=== PATIENT | female | born 1950 | race Caucasian/White ===

== ENCOUNTER → 2016-04-14 | Outpatient (CLI) | payer OTHER ==
[~2016-04-14] MED LIST: ASPI81TA21 PO; GLIM2TAB2 PO; GLUCTAB PO; LISI2.5T5 PO; LORA0.5T12 PO; METF1000 PO; NAPR1TAB9 PO; PIRO-104 PO; PRED10TA PO; SERT1TAB88 PO; SIMV-151 PO
--- NOTE | 2016-04-14 10:53 | DIAGNOSTIC IMAGING REPORT ---
LEFT RIBS INCLUDING PA ERECT CHEST CLINICAL HISTORY: Left rib pain COMPARISON STUDY: 08/28/2015 FINDINGS: The erect chest reveals a stable area of atelectasis/scarring at the left lung base. There is no focal pulmonary consolidation. There is no pneumothorax. No left-sided rib fractures are visualized. No destructive lesions are visualized on conventional radiographic imaging IMPRESSION: No evidence of pneumothorax. No left-sided rib lesions or fractures are visualized. Electronically signed by: Issa Waddell M.D. 04/14/2016 10:51 AM Dictated Date/Time: 04/14/2016 10:49 AM
--- NOTE | 2016-04-14 10:53 | DIAGNOSTIC IMAGING REPORT ---
THORACOLUMBAR SPINE 2 VIEWS CLINICAL HISTORY: Back pain COMPARISON STUDY: No previous studies for comparison. FINDINGS: There are surgical clips within the right upper quadrant. There are mild multilevel degenerative changes present. No fractures, subluxations, or destructive lesions are visualized. The paraspinal line is not significantly displaced. IMPRESSION: No fractures, subluxations, or destructive lesions are visualized. Mild multilevel degenerative change. Electronically signed by: Issa Waddell M.D. 04/14/2016 10:52 AM Dictated Date/Time: 04/14/2016 10:51 AM
== END | disposition home or self-care (01) ==
LOC: C.RAD1850 10:25
PROVIDERS: ATTEND Nurse Practitioner Family
DX: M54.6 Pain in thoracic spine (principal)

== ENCOUNTER → 2016-06-22 | Outpatient (CLI) | payer OTHER ==
--- NOTE | 2016-06-22 12:11 | DIAGNOSTIC IMAGING REPORT ---
LEFT THIRD FINGER RADIOGRAPHS CLINICAL HISTORY: Follow-up fracture. COMPARISON: None FINDINGS: There is a comminuted, mildly displaced fracture of the distal tuft of the distal phalanx of the left third finger. No additional fractures of the left third finger are identified. IMPRESSION: Comminuted, mildly displaced fracture of the distal tuft of the distal phalanx of the left third finger which is likely subacute. Electronically signed by: Ronny Lovett M.D. 06/22/2016 12:10 PM Dictated Date/Time: 06/22/2016 12:09 PM
== END | disposition home or self-care (01) ==
LOC: C.RAD1850 11:43
PROVIDERS: ATTEND Family Medicine
DX: S62.633A Displaced fracture of distal phalanx of left middle finger, initial encounter for closed fracture (principal); X58.XXXA Exposure to other specified factors, initial encounter

== ENCOUNTER → 2016-07-27 | Outpatient (CLI) | payer OTHER ==
--- NOTE | 2016-07-27 12:49 | MAMMOGRAPHY REPORT ---
BILATERAL DIGITAL SCREENING MAMMOGRAM WITH CAD: 07/27/2016 CLINICAL HISTORY: Routine screening. Patient has no complaints. TECHNIQUE: Bilateral CC and MLO views were obtained. Current study was also evaluated with a Comput er Aided Detection (CAD) system. COMPARISON: Comparison is made to exams dated: 07/28/2015 mammogram, 07/18/2014 mammogram, 05/11/2013 m ammogram, 03/30/2012 mammogram, 03/05/2010 mammogram - [facility], and 02/02/2008. BREAST COMPOSITION: There are scattered areas of fibroglandular density in both breasts. FINDINGS: There are scattered bilateral benign-appearing calcifications in the breasts. No new susp icious mass, architectural distortion or cluster of microcalcifications is seen. IMPRESSION: ACR BI-RADS CATEGORY 1: NEGATIVE There is no mammographic evidence of malignancy. A 1 year screening mammogram is recommended. The p atient will receive written notification of the results. Approximately 10% of breast cancers are not detected with mammography. A negative mammographic repor t should not delay biopsy if a clinically suggestive mass is present. Sara Jeronimo M.D. ay/:07/27/2016 12:22:17 Used Car Manager: Mer HOLLOWAY(Chanel)(M), [facility] letter sent: Normal 1/2 BI-RADS Code: ACR BI-RADS Category 1: Negative
== END | disposition home or self-care (01) ==
LOC: C.MAMM 10:59
PROVIDERS: ATTEND Family Medicine
DX: Z12.31 Encounter for screening mammogram for malignant neoplasm of breast (principal)

== ENCOUNTER → 2016-09-06 | Outpatient (CLI) | payer OTHER ==
--- NOTE | 2016-09-06 15:05 | DIAGNOSTIC IMAGING REPORT ---
LEFT ELBOW 3 VIEWS CLINICAL HISTORY: Fall with left elbow injury. FINDINGS: 3 views of the left elbow are obtained. No prior studies are available for comparison at the time of dictation. The skeletal structures are osteopenic. There is no radiographic evidence of fracture. The joint spaces appear maintained. No joint effusion is identified. A tiny enthesophyte is seen at the triceps insertion. An enthesophyte is also seen along the lateral humeral epicondyle. The overlying soft tissues are within normal limits. IMPRESSION: There is no radiographic evidence of left elbow fracture. Electronically signed by: Abhishek Agustin M.D. 09/06/2016 3:04 PM Dictated Date/Time: 09/06/2016 3:03 PM
--- NOTE | 2016-09-06 15:07 | DIAGNOSTIC IMAGING REPORT ---
LEFT SCAPULA 2 VIEWS CLINICAL HISTORY: Fall with left shoulder pain. FINDINGS: 2 views of the left scapula are obtained. No prior studies are available for comparison at the time of dictation. The skeletal structures are osteopenic. There is no radiographic evidence of left scapular fracture. The shoulder joint is intact as visualized. The overlying soft tissues are normal as imaged. The visualized left upper lobe lung parenchyma appears clear. IMPRESSION: There is no radiographic evidence of left scapular fracture. Electronically signed by: Abhishek Agustin M.D. 09/06/2016 3:05 PM Dictated Date/Time: 09/06/2016 3:04 PM
== END | disposition home or self-care (01) ==
LOC: C.RAD1850 14:41
PROVIDERS: ATTEND Physician Assistant
DX: M89.8X1 Other specified disorders of bone, shoulder (principal); M25.522 Pain in left elbow; R20.0 Anesthesia of skin; W11.XXXA Fall on and from ladder, initial encounter

== ENCOUNTER → 2017-07-28 | Outpatient (CLI) | payer OTHER ==
[~2017-07-28] MED LIST changes: +ASPI-319 PO; -ASPI81TA21 PO; +LISI-1116 PO; -LISI2.5T5 PO
--- NOTE | 2017-07-29 07:49 | MAMMOGRAPHY REPORT ---
BILATERAL DIGITAL SCREENING MAMMOGRAM TOMOSYNTHESIS WITH CAD: 07/28/2017 CLINICAL HISTORY: Routine screening. Patient has no complaints. TECHNIQUE: Breast tomosynthesis in addition to standard 2D mammography was performed. Current study was also evaluated with a Computer Aided Detection (CAD) system. COMPARISON: Comparison is made to exams dated: 07/27/2016 mammogram, 07/28/2015 mammogram, 07/18/2014 jenise mogram, 05/11/2013 mammogram, 03/30/2012 mammogram, and 03/09/2011 mammogram - [facility]ter. BREAST COMPOSITION: There are scattered areas of fibroglandular density in both breasts. FINDINGS: No suspicious masses, calcifications, or areas of architectural distortion are noted in ei ther breast. There has been no significant interval change compared to prior exams. Scattered bilate ral benign-appearing calcifications are again noted. IMPRESSION: ACR BI-RADS CATEGORY 2: BENIGN There is no mammographic evidence of malignancy. A 1 year screening mammogram is recommended. The pa tient will receive written notification of the results. Approximately 10% of breast cancers are not detected with mammography. A negative mammographic report should not delay biopsy if a clinically suggestive mass is present. Zeinab Cervantes M.D. ah/:07/28/2017 12:54:14 Locomotive Supervisor: Jihan ALEGRIA)(Rehana)(BD), [facility] letter sent: Normal 1/2 BI-RADS Code: ACR BI-RADS Category 2: Benign
== END | disposition home or self-care (01) ==
LOC: C.MAMM 10:50
PROVIDERS: ATTEND Family Medicine
DX: Z12.31 Encounter for screening mammogram for malignant neoplasm of breast (principal); M85.89 Other specified disorders of bone density and structure, multiple sites

== ENCOUNTER 2017-11-05 19:18 | Observation (INO) | payer OTHER ==
[~2017-11-05] VITALS: Ht 160 cm; Wt 90.7 kg
[2017-11-05] MEDS ORDERED: ASPIRIN 81 MG CHEW PO STA (19:35)
[2017-11-05] MEDS ORDERED: SODIUM CHLORIDE 0.9% 1000ML 1,000 ML IV STA (19:35)
[2017-11-05] MEDS ORDERED: EMPA1TAB PO (19:45)
[2017-11-05] MEDS ORDERED: SITA1TAB27 PO (19:45)
[2017-11-05] MEDS ORDERED: INSDGIPEN SQ (19:45)
[2017-11-05] MEDS ORDERED: NITROGLYCERIN 0.4 MG SL PER TAB CHARGE SL PRN ×2 (19:45→22:15)
[2017-11-05] MEDS ORDERED: CYM30 PO (19:45)
--- NOTE | 2017-11-05 20:02 | DIAGNOSTIC IMAGING REPORT ---
CHEST ONE VIEW PORTABLE CLINICAL HISTORY: 67 years-old Female presenting with Chest Pain. TECHNIQUE: Portable upright AP view of the chest was obtained. COMPARISON: 09/11/2014. FINDINGS: Cardiomediastinal silhouette normal. Prominence of pulmonary vasculature. Lungs and pleural spaces clear. Osseous structures normal. Upper abdomen normal. IMPRESSION: 1. Findings suggest volume overload. No dottie pulmonary edema. Electronically signed by: Jay Smart M.D. 11/05/2017 8:01 PM Dictated Date/Time: 11/05/2017 7:59 PM
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
[2017-11-05 20:25] LABS: BASO % 1.7 %; EOS % 5.6 %; EOS ABS # 0.33 K/uL (0-0.5); HEMATOCRIT 41.5 % (37-47); HEMOGLOBIN 14.2 g/dL (12.0-16.0); IG# 0.02 K/uL (0.00-0.02); LYMPH % 33.1 %; LYMPH ABS # 1.95 K/uL (1.2-3.4); MEAN CELL VOLUME 87.2 fL (80-100); MEAN CORPUSCULAR HEMOGLOBIN 29.8 pg (25-34); MEAN CORPUSCULAR HGB CONC 34.2 g/dl (32-36); MEAN PLATELET VOLUME 9.9 fL (7.4-10.4); MONO % 5.6 %; MONO ABS # 0.33 K/uL (0.11-0.59); NEUT % 53.7 %; NEUT ABS # 3.17 K/uL (1.4-6.5); PLATELET COUNT 166 K/uL (130-400); RED CELL DISTRIBUTION WIDTH CV 13.3 % (11.5-14.5); RED CELL DISTRIBUTION WIDTH SD 42.4 fL (36.4-46.3)
[2017-11-05 20:46] LABS: BLOOD UREA NITROGEN 12 mg/dl (7-18); CARBON DIOXIDE 25 mmol/L (21-32); CKMB 1.8 ng/ml (0.5-3.6); CREATININE 1.17 mg/dl (0.60-1.20); GLUCOSE 339 mg/dl (70-99); POTASSIUM 3.5 mmol/L (3.5-5.1); SODIUM 138 mmol/L (136-145)
[2017-11-05] MEDS ORDERED: GLUCOSE 10 TABS/TUBE PO PRN (22:15)
[2017-11-05] MEDS ORDERED: ONDANSETRON INJ 2 MG/ML 2 ML VIAL IV PRN (22:15)
[2017-11-05] MEDS ORDERED: GLUCAGON FOR INJ 1 MG VIAL SQ PRN (22:15)
[2017-11-05] MEDS ORDERED: GLUCOSE 40% GEL 15 GM TUBE PO PRN (22:15)
[2017-11-05] MEDS ORDERED: CARBOHYDRATES FOR HYPOGLYCEMIA PO PRN (22:15)
[2017-11-05] MEDS ORDERED: LORAZEPAM 0.5 MG TAB PO PRN (22:15)
[2017-11-05] MEDS ORDERED: DC ALL PREVIOUSLY ORDERED DIABETES MEDS ONE (22:15)
[2017-11-05] MEDS ORDERED: MoRPHine SULFATE 2 MG/ML CARP IV PRN (22:15)
[2017-11-05] MEDS ORDERED: DEXTROSE 50% 50 ML SYR IV PRN (22:15)
[2017-11-05] MEDS ORDERED: ACETAMINOPHEN 325 MG TAB PO PRN (22:15)
--- NOTE | 2017-11-05 22:24 | History and Physical ---
History & Physical Date & Time of Service: Nov 05, 2017 at 22:21 Chief Complaint: Chest Pain Primary Care Physician: Srinivasa Ferraro M.D. History of Present Illness Source: patient Patient is a pleasant 67yo female with history of DM, HLP presenting with chest pain. Patient states that she went out to eat with her friend this evening. On her drive home she had acute onset of substernal chest pressure and heaviness. She rated the discomfort at 8/10, non-radiating, non-pleuritic. She had associated diaphoresis. No dizziness/nausea or lightheadedness. She drove herself to the ER. On arrival here she was found to be afebrile, hemodynamically stable. She was administered 0.4mg SL Nitro with improvement of the pain to 5/10. She is presently chest pain free. Past Medical/Surgical History Medical Problems: (1) Chest pain (2) Contusion of left foot (3) Diabetes (4) Flank pain (5) Flank pain (6) Hyperlipidemia (7) Negative history for kidney stones (8) Vertigo Surgical Problems: (1) History of hysterectomy (2) Hx of cholecystectomy (3) Hx of cholecystectomy Family History Cancer Heart disease Kidney disease Social History Smoking Status: Never Smoker Drug Use: none Marital Status: Housing status: lives alone Occupational Status: employed, retired Allergies Coded Allergies: Empagliflozin (Verified Adverse Reaction, Severe, UTI, DIZZY, 11/05/17) Metformin (Verified Adverse Reaction, Severe, INCREASED LACTIC ACID, ) Home Medications Scheduled Aspirin Enteric Coated (Ecotrin Or Generic), 81 MG PO DAILY Duloxetine HCl (Duloxetine HCl), 30 MG PO BID Glimepiride (Glimepiride), 2 MG PO DAILY Cbnqqbkxcgv-Cclsqljaqqn-Yrzgnm (Glucosamine Chondroitin D), 2 TABS PO DAILY Insulin Glargine (Lantus Solostar), 30 UNITS SQ HS Simvastatin (Simvastatin), 20 MG PO HS Sitagliptin (Januvia), 100 MG PO DAILY Scheduled PRN Lorazepam (Lorazepam), 0.5 MG PO DAILY PRN for Anxiety Naproxen (Aleve), 220 MG PO DAILY PRN for Headache Review of Systems Constitutional: No fever, No chills, No sweats Eyes: No worsening of vision ENT: No hearing loss, No sore throat, No trouble swallowing Respiratory: + cough, + sputum (reports occasional productive cough), No shortness of breath, No dyspnea on exertion Cardiovascular: + chest pain, No orthopnea, No edema, No palpitations Abdomen: No pain, No nausea, No vomiting, No diarrhea, No constipation Musculoskeletal: No joint pain Genitourinary - Female: No dysuria Neurologic: No weakness, No numbness/tingling Psychiatric: No depression symptoms Endocrine: No fatigue Hematologic / Lymphatic: No abnormal bleeding/bruising Integumentary: No rash Physical Exam Vital Signs Date Time Temp Pulse Resp B/P (MAP) Pulse Ox O2 Delivery O2 Flow Rate FiO2 11/05/17 22:01 79 20 124/69 97 Room Air 11/05/17 21:31 85 23 118/94 97 Room Air 11/05/17 21:01 83 18 123/65 96 Room Air 11/05/17 20:31 84 22 120/66 97 Room Air 11/05/17 20:01 87 18 124/73 96 Room Air 11/05/17 19:31 93 24 140/75 97 Room Air 11/05/17 19:30 Room Air 11/05/17 19:28 Room Air 11/05/17 19:22 36.9 86 18 134/76 96 Room Air General Appearance: WD/WN, no apparent distress Head: normocephalic, atraumatic Eyes: normal inspection, PERRL, EOMI, sclerae normal ENT: normal ENT inspection, pharynx normal Neck: supple, no adenopathy, thyroid normal, no JVD, trachea midline Respiratory/Chest: lungs clear, normal breath sounds, no respiratory distress, no accessory muscle use, + pertinent finding (mild tenderness with palpation of sternum and ribs) Cardiovascular: regular rate, rhythm, no edema, no gallop, no JVD, no murmur, normal peripheral pulses Abdomen/GI: normal bowel sounds, non tender, soft, no organomegaly Back: normal inspection, + pertinent finding (muscle spasm of left paraspinal musculature) Extremities/Musculoskelatal: normal inspection, no calf tenderness, normal capillary refill, no pedal edema, normal range of motion, non-tender Neurologic/Psych: no motor/sensory deficits, alert, oriented x 3 Skin: normal color, warm/dry, no rash Lymphatic: no adenopathy Diagnostics Laboratory Results Results Past 24 Hours Test 11/05/17 19:40 Range/Units White Blood Count 5.90 4.8-10.8 K/uL Red Blood Count 4.76 4.2-5.4 M/uL Hemoglobin 14.2 12.0-16.0 g/dL Hematocrit 41.5 37-47 % Mean Corpuscular Volume 87.2 80-100 fL Mean Corpuscular Hemoglobin 29.8 25-34 pg Mean Corpuscular Hemoglobin Concent 34.2 32-36 g/dl Platelet Count 166 130-400 K/uL Mean Platelet Volume 9.9 7.4-10.4 fL Neutrophils (%) (Auto) 53.7 % Lymphocytes (%) (Auto) 33.1 % Monocytes (%) (Auto) 5.6 % Eosinophils (%) (Auto) 5.6 % Basophils (%) (Auto) 1.7 % Neutrophils # (Auto) 3.17 1.4-6.5 K/uL Lymphocytes # (Auto) 1.95 1.2-3.4 K/uL Monocytes # (Auto) 0.33 0.11-0.59 K/uL Eosinophils # (Auto) 0.33 0-0.5 K/uL Basophils # (Auto) 0.10 0-0.2 K/uL RDW Standard Deviation 42.4 36.4-46.3 fL RDW Coefficient of Variation 13.3 11.5-14.5 % Immature Granulocyte % (Auto) 0.3 % Immature Granulocyte # (Auto) 0.02 0.00-0.02 K/uL Sodium Level 138 136-145 mmol/L Potassium Level 3.5 3.5-5.1 mmol/L Chloride Level 103 98-107 mmol/L Carbon Dioxide Level 25 21-32 mmol/L Anion Gap 10.0 3-11 mmol/L Blood Urea Nitrogen 12 7-18 mg/dl Creatinine 1.17 0.60-1.20 mg/dl Est Creatinine Clear Calc Drug Dose 53.6 ml/min Estimated GFR () 56.6 Estimated GFR (Non- 48.9 BUN/Creatinine Ratio 10.1 10-20 Random Glucose 339 70-99 mg/dl Calcium Level 9.0 8.5-10.1 mg/dl Total Creatine Kinase 155 26-192 U/L Creatine Kinase MB 1.8 0.5-3.6 ng/ml Creatine Kinase MB Ratio 1.2 0-3.0 Troponin I < 0.015 0-0.045 ng/ml Beta-Hydroxybutyric Acid 1.04 0.2-2.81 mg/dL Diagnostic Radiology CHEST ONE VIEW PORTABLE CLINICAL HISTORY: 67 years-old Female presenting with Chest Pain. TECHNIQUE: Portable upright AP view of the chest was obtained. COMPARISON: 09/11/2014. FINDINGS: Cardiomediastinal silhouette normal. Prominence of pulmonary vasculature. Lungs and pleural spaces clear. Osseous structures normal. Upper abdomen normal. IMPRESSION: 1. Findings suggest volume overload. No dottie pulmonary edema. Electronically signed by: Jay Smart M.D. 11/05/2017 8:01 PM Dictated Date/Time: 11/05/2017 7:59 PM EKG The study demonstrates NSR at 89bpm, left axis deviation, MV=345, QRS=88, QTc= 450, non-specific t-wave changes in V1, V5, V6 Impression Assessment and Plan Patient is a 67yo female with DM, HLP presenting with acute onset substernal CP 1. Chest pain - patient presently hemodynamically stable. EKG with nonspecific t-wave changes, troponin x 1 negative. Patient is presently CP free. Ddx to include ACS/UA given patient's history of intermittent exertional CP in the past, also consider GI, musculoskeletal pain. -Observation to telemetry -Trend cardiac enzymes x 3 sets -Check lipids and HgAIC -Continue ASA and Statin -Patient may benefit from additional stress testing 2. Diabetes - blood sugar presently elevated at 339. -Check A1C -Hold oral agents -Continue Lantus 30u qHS, Novolog sliding scale based on weight -Continue to monitor 3. Hyperlipidemia - chronic -check lipids -Continue Simvastatin 4. Depression - chronic -Continue Cymbalta 5. F/E/N - Heplock. Monitor electrolytes and replete as needed. AHA/DM diet as tolerated 6. Ppx - Lovenox for DVT prophylaxis 7. Code - Full per discussion with patient 8. Dispo - Observation to telemetry Resuscitation Status FULL VTE Prophylaxis Will order VTE Prophylaxis: Yes
[2017-11-05] MEDS ORDERED: IV FLUIDS COMPLETED PRN (22:30)
[2017-11-05 22:51] LABS: PTT PATIENT 25.6 SECONDS (21.0-31.0)
[2017-11-05 22:59] LABS: PHOSPHORUS 2.8 mg/dl (2.5-4.9)
[2017-11-05 23:00] VITALS: BP 136/80; PULSE 78; TEMP 36.7; O2SAT 95; Ht 160 cm; Wt 90.7 kg
[2017-11-05] MEDS ORDERED: INSULIN GLARGINE SOLOSTAR 100 UNITS/ML 3 ML PEN SQ SCH (23:30)
[2017-11-06] MEDS: INSULIN ASPART 100 UNITS/ML 3 ML PEN SC SCH ×3 (00:29→11:53)
[2017-11-06 03:41] VITALS: BP 117/57; PULSE 80; TEMP 37; O2SAT 97
[2017-11-06 04:02] LABS: BASO % 1.5 %; BASO ABS # 0.08 K/uL (0-0.2); EOS % 6.2 %; EOS ABS # 0.34 K/uL (0-0.5); HEMATOCRIT 39.7 % (37-47); HEMOGLOBIN 13.4 g/dL (12.0-16.0); IG# 0.02 K/uL (0.00-0.02); LYMPH ABS # 2.02 K/uL (1.2-3.4); MEAN CELL VOLUME 88.2 fL (80-100); MEAN CORPUSCULAR HEMOGLOBIN 29.8 pg (25-34); MEAN CORPUSCULAR HGB CONC 33.8 g/dl (32-36); MEAN PLATELET VOLUME 9.6 fL (7.4-10.4); MONO % 6.2 %; MONO ABS # 0.34 K/uL (0.11-0.59); NEUT % 48.7 %; NEUT ABS # 2.66 K/uL (1.4-6.5); PLATELET COUNT 155 K/uL (130-400); RED CELL DISTRIBUTION WIDTH CV 13.4 % (11.5-14.5); RED CELL DISTRIBUTION WIDTH SD 43.2 fL (36.4-46.3); WHITE BLOOD COUNT 5.46 K/uL (4.8-10.8)
[2017-11-06 04:24] LABS: BLOOD UREA NITROGEN 12 mg/dl (7-18); CALCIUM 8.6 mg/dl (8.5-10.1); CARBON DIOXIDE 27 mmol/L (21-32); CREATININE 0.82 mg/dl (0.60-1.20); GLUCOSE 108 mg/dl (70-99); SODIUM 143 mmol/L (136-145)
[2017-11-06 04:27] LABS: CHOLESTEROL 154 mg/dl (0-200); LDL CHOLESTEROL CALCULATED 63 mg/dl
[2017-11-06] MEDS ORDERED: ENOXAPARIN 40 MG/0.4 ML SYR SC SCH (06:00)
[2017-11-06 07:43] VITALS: BP 122/74; PULSE 71; TEMP 36.8; O2SAT 95
[2017-11-06 08:00] VITALS: O2SAT 95
[2017-11-06] MEDS ORDERED: ASPIRIN 81 MG ECTAB PO SCH (09:00)
[2017-11-06] MEDS ORDERED: DULOXETINE (CYMBALTA) 30 MG CAP PO SCH (09:00)
--- NOTE | 2017-11-06 10:32 | EXERCISE STRESS ECHO ---
*NOTICE TO RECEIVING CONSTITUTION PARTY AGENCY This information is strictly Confidential and protected under [place] law. [place] law prohibits you from making any further disclosure of this information unless further disclosure is expressly permitted by the written consent of the person to whom it pertains or is authorized by law. A general authorization for the release of medical or other information is not sufficient for this purpose. Hospital accepts no responsibility if the information is made available to any other person, INCLUDING THE PATIENT. Interpretation Summary * Name: SCOOBY LIMON Study Date: 11/06/2017 08:32 AM BP: 131/79 mmHg * Patient Location: C.2T\S\S241\S\1 HR: 80 * : 1950 (M/d/yyyy) Gender: Female Height: 63 in * Age: 67 yrs Ethnicity: CA Weight: 199 lb * Ordering Physician: Srinivasa Cm * Referring Physician: Self, Referred * Performed By: Chetna Serrano RDCS * * Reason For Study: Chest pain * BSA: 1.9 m2 * -- Conclusions -- * Stress Echo: * 1. Negative stress echo for ischemia at 89 % MPHR. * 2. Negative exercise ECG for ischemia at 89 % MPHR. * 3. Appropriate blood pressure response to exercise. * 4. No arrhythmia. * 5. Study terminated due to dyspnea and fatigue. No chest pain reported. * 6. Poor exercise tolerance. Procedure Details * ECHOEX, CPT #81059 Left Ventricle * The left ventricle is normal in size. * There is normal left ventricular wall thickness. * Left ventricular systolic function is normal. * Ejection Fraction = 60-65%. * Resting wall motion: Normal. Stress wall motion: Appropriate increase in Left ventricular systolic function and decrease in cavity size. No stress induced segmental wall motion abnormalities. * The left ventricular ejection fraction increases normally with stress. The left ventricular end-systolic cavity size reduces post-stress (normal response). The left ventricular wall motion with stress is normal. Stress Parameters * NSR at 75 bpm. * Stress ECG: No ST changes. No arrhythmias. * No arrhythmia were noted with stress. * The stress portion of this study was personally supervised by the undersigned interpreting physician. * Rest heart rate was '80' BPM. * Rest blood pressure was '131/79' * Maximum heart rate achieved was 139 bpm. * Maximum heart rate was 89 % of maximum age-predicted heart rate. * Maximum blood pressure was '161/71' * Total exercise time was '3:21' * Maximum exercise MET level achieved was '5.00' METS * Maximum treadmill speed was '2.50' miles per hour. * Maximum treadmill elevation was '12.00'% grade. * Exercise was terminated due to 'dyspnea and fatigue' MMode 2D Measurements and Calculations IVSd 0.93 cm LVIDd 4.3 cm LVIDs 2.9 cm LVPWd 0.93 cm IVS/LVPW 10 FS 32.2 % EDV(Teich) 84.5 ml ESV(Teich) 33.2 ml EF(Teich) 60.7 % EDV(cubed) 81.3 ml ESV(cubed) 25.3 ml EF(cubed) 68.9 % LV mass(C)d 130.3 grams LV mass(C)dI 67.5 grams/m\S\2 SV(Teich) 51.4 ml SI(Teich) 26.6 ml/m\S\2 SV(cubed) 56.0 ml SI(cubed) 29.0 ml/m\S\2 LVAd ap4 28.1 cm\S\2 LVLd ap4 7.8 cm EDV(MOD-sp4) 80.9 ml EDV(sp4-el) 85.8 ml LVAs ap4 14.8 cm\S\2 LVLs ap4 6.5 cm ESV(MOD-sp4) 28.6 ml ESV(sp4-el) 28.5 ml EF(MOD-sp4) 64.7 % EF(sp4-el) 66.8 % LVAd ap2 21.6 cm\S\2 LVLd ap2 7.1 cm EDV(MOD-sp2) 52.5 ml EDV(sp2-el) 55.5 ml LVAs ap2 11.2 cm\S\2 LVLs ap2 6.0 cm ESV(MOD-sp2) 18.6 ml ESV(sp2-el) 17.8 ml EF(MOD-sp2) 64.5 % EF(sp2-el) 68.0 % LVLd %diff -9.61 % EDV(MOD-bp) 68.9 ml LVLs %diff -8.31 % ESV(MOD-bp) 23.7 ml EF(MOD-bp) 65.6 % SV(MOD-sp4) 52.3 ml SI(MOD-sp4) 27.1 ml/m\S\2 SV(MOD-sp2) 33.9 ml SI(MOD-sp2) 17.6 ml/m\S\2 SV(MOD-bp) 45.2 ml SI(MOD-bp) 23.4 ml/m\S\2 SV(sp4-el) 57.3 ml SI(sp4-el) 29.7 ml/m\S\2 SV(sp2-el) 37.7 ml SI(sp2-el) 19.6 ml/m\S\2
[2017-11-06] MEDS ORDERED: OMEG10007 PO (11:52)
[2017-11-06 11:58] VITALS: BP 122/74; PULSE 71; TEMP 36.8; O2SAT 95
--- NOTE | 2017-11-06 11:59 | Discharge Instructions ---
Discharge Instructions Date of Service Nov 06, 2017. Admission Reason for Admission: Chest Pain Discharge Discharge Diagnosis / Problem: Chest pain - no evidence of heart attack; stress test NEGATIVE Discharge Goals Goal(s): Learn about illness, Diagnostic testing, Therapeutic intervention Activity Recommendations Activity Limitations: resume your previous activity (as tolerated) . Instructions / Follow-Up Instructions / Follow-Up From Dr. Cm - You presented with chest pain to our emergency room. The pain resolved after receiving medication in the ER. Your telemetry (heart monitoring), blood work for your heart, and your exercise stress echocardiogram ("stress test") were all normal/negative. Your EKGs were also normal. The available data and testing would suggest that your chest pain was NOT from your heart. However, there are select circumstances (about 10% chance) that your stress test gave us a false reading. There is a good chance that this may have been an episode of severe reflux / esophageal spasm / GI in origin. Over the next month or two please take note of any of the following - * worsening/extreme fatigue that is out of the ordinary for you * worsening/new onset shortness of breath * recurrent chest pains * recurrent upper abdominal pains * arm pain (either arm) or jaw/neck pains If you have any of the above please see your family doctor right away and ask for a referral to a special delivery messenger. At that time a special delivery messenger may suggest additional heart testing. Your cholesterol testing looked good with the exception of your triglycerides which were mildly high (normal is less than 150; yours was about 200). Please consider taking [id number] fish oil once a day for your triglycerides. With respect to your snoring/fatigue -- you may have sleep apnea. I would ask your family doctor for a sleep study referral to rule out sleep apnea. Follow-up - see Dr. Ferraro within 5 days (or any of his associates) Return to [facility] if - * you have fever over 100.5 degrees * you have recurrent chest pains, shortness of breath, etc * any other concerns Current Hospital Diet Patient's current hospital diet: AHA Diet (Heart Healthy), Diabetes Type 2 Diet Discharge Diet Recommended Diet: AHA Diet (Heart Healthy), Diabetes Type 2 Diet Procedures Procedures Performed: exercise stress echocardiogram - normal/negative. TSH (thyroid level) - normal. Pending Studies Studies pending at discharge: no Laboratory Results Hemoglobin A1c Test 11/05/17 19:40 Range/Units Lipid Panel Test 11/06/17 03:50 Range/Units Triglycerides Level 210 H 0-150 mg/dl Cholesterol Level 154 0-200 mg/dl HDL Cholesterol 49 mg/dl Cholesterol/HDL Ratio 3.1 LDL Cholesterol, Calculated 63 mg/dl Medical Emergencies . Who to Call and When: Medical Emergencies: If at any time you feel your situation is an emergency, please call 911 immediately. . Non-Emergent Contact Non-Emergency issues call your: Primary Care Provider Call Non-Emergent contact if: temperature is above 100.5, your pain is unusual for you, your pain is concerning you, you have any medication questions . . "Provider Documentation" section prepared by Srinivasa Cm. .
[2017-11-06] MEDS ORDERED: SIMVASTATIN 20 MG TAB PO SCH (21:00)
--- NOTE | 2017-11-06 22:44 | Discharge Summary ---
Discharge Summary Date of Service Nov 06, 2017. Discharge Summary Admission Date: Nov 05, 2017 at 22:20 Discharge Date: Nov 06, 2017 Discharge Disposition: Home Principal Diagnosis: chest pain, ACS ruled out, negative stress test Problems/Secondary Diagnoses: 1. obesity - BMI 35 2. T2DM 3. hyperlipidemia 4. snoring with concern for BRO Procedures: exercise stress echocardiogram - -- Conclusions -- * 1. Negative stress echo for ischemia at 89 % MPHR. * 2. Negative exercise ECG for ischemia at 89 % MPHR. * 3. Appropriate blood pressure response to exercise. * 4. No arrhythmia. * 5. Study terminated due to dyspnea and fatigue. No chest pain reported. * 6. Poor exercise tolerance. Left Ventricle * The left ventricle is normal in size. * There is normal left ventricular wall thickness. * Left ventricular systolic function is normal. * Ejection Fraction = 60-65%. * Resting wall motion: Normal. Stress wall motion: Appropriate increase in Left ventricular systolic function and decrease in cavity size. No stress induced segmental wall motion abnormalities. * The left ventricular ejection fraction increases normally with stress. The left ventricular end-systolic cavity size reduces post-stress (normal response). The left ventricular wall motion with stress is normal. Medication Reconciliation New Medications: Fish Oil ([place]-3) 1 Ea Cap 1000 MG PO DAILY, #30 CAP 2 Refills can purchase [id number] Continued Medications: Aspirin Enteric Coated (Ecotrin Or Generic) 81 Mg Tab 81 MG PO DAILY, TAB Duloxetine HCl (Duloxetine HCl) 30 Mg Cap 30 MG PO BID Glimepiride (Glimepiride) 2 Mg Tab 2 MG PO DAILY Blxthowkeub-Npracnhhjqg-Vplhcy (Glucosamine Chondroitin D) 1 Tab Tab 2 TABS PO DAILY Insulin Glargine (Lantus Solostar) 100 Unit/Ml Inj 30 UNITS SQ HS pt adjusts according to bsg Lorazepam (Lorazepam) 0.5 Mg Tab 0.5 MG PO DAILY PRN for Anxiety Naproxen (Aleve) 220 Mg Tab 220 MG PO DAILY PRN for Headache, TAB Simvastatin (Simvastatin) 20 Mg Tab 20 MG PO HS Sitagliptin (Januvia) 100 Mg Tab 100 MG PO DAILY Discharge Exam Physical Exam: General Appearance: no apparent distress, + obese ENT: pharynx normal Neck: no JVD Respiratory/Chest: chest non-tender, lungs clear, no respiratory distress, no accessory muscle use Cardiovascular: regular rate, rhythm, no gallop, no murmur, normal peripheral pulses Abdomen / GI: normal bowel sounds, soft, no organomegaly, + tenderness ( minimal - high epigastric region) Extremities: no pedal edema Neurologic/Psychiatric: alert, oriented x 3 Hospital Course HISTORY OF PRESENT ILLNESS: Patient is a pleasant 67yo female with history of T2DM and hyperlipidemia presenting with chest pain. Patient states that she went out to eat with her friend this evening. On her drive home she had acute onset of substernal chest pressure and heaviness. She rated the discomfort at 8/10, non-radiating, non- pleuritic. She had associated diaphoresis. No dizziness/nausea or lightheadedness. She drove herself to the ER. On arrival here she was found to be afebrile and hemodynamically stable. She was administered 0.4mg SL Nitro with improvement of the pain to 5/10 and then full resolution of the discomfort. The symptoms started about 30 minutes after eating a meal consisting of fried food and lemon pie. HOSPITAL COURSE: Following admission the patient had no further chest symptoms. She remained hemodynamically stable throughout her stay. Telemetry, troponins x 3, EKGs, and stress echocardiogram were all normal/ negative. See above for full stress echo report. In light of her negative cardiac work-up it was suspected that her presenting symptoms may have been GI in origin. Specifically, her episode of pain could have been reflux-related with esophageal spasm. Musculoskeletal etiology was not suspected. The patient was advised to monitor for any recurrent symptoms over the next several weeks. If she were to have recurrent chest symptoms then cardiology referral would be advised for consideration of more invasive testing. Labs checked during this admission showed normal TSH and relatively normal lipid profile with the exception of mildly elevated triglycerides with level of about 200. She was encouraged to consider taking [id number] fish oil for her triglycerides. Lastly, the patient reported significant, long-standing snoring and chronic fatigue. I recommended she speak with her PCP about obtaining an outpatient sleep study. Total Time Spent: Greater than 30 minutes This includes examination of the patient, discharge planning, medication reconciliation, and communication with other providers. Discharge Instructions Please refer to the electronic Patient Visit Report (Discharge Instructions) for additional information. Follow-Up see PCP within 5 days of discharge Additional Copies To Srinivasa Ferraro M.D.
[2017-11-07 06:44] LABS: HEMOGLOBIN A1C 8.7 % (4.5-5.6)
== END 2017-11-06 12:10 | disposition hospice, home (50) ==
LOC: C.EDB 19:19 → C.2T 22:20 → ENRESERV 22:29
PROVIDERS: ADMIT Internal Medicine; ATTEND Internal Medicine
DX: R07.9 Chest pain, unspecified (principal); E11.9 Type 2 diabetes mellitus without complications; E78.5 Hyperlipidemia, unspecified; E66.9 Obesity, unspecified; Z68.35 Body mass index [BMI] 35.0-35.9, adult; Z79.4 Long term (current) use of insulin; Z90.710 Acquired absence of both cervix and uterus; Z90.49 Acquired absence of other specified parts of digestive tract